=== PATIENT | female | born 1940 | race Caucasian/White ===

== ENCOUNTER → 2016-10-01 | Outpatient (CLI) | payer MEDICARE, OTHER ==
[~2016-10-01] MED LIST: AQUAZIDE H50 MG PO; CLARINEX 5MG5 MG PO; CLARINEX5 MG PO; COUMADIN5 MG PO; DEMADEX10 MG PO; EFFEXOR XR75 MG PO; EFFEXOR75 MG PO; HYDROCHLOR50 MG PO; ISOSORBIDE MONO60 MG PO; LOPRESSOR 225 MG/TAB PO; MICRO-K 1010 MEQ PO; NITROSTAT0.4 MG SL; POTASSIUM CL 220 MEQ PO; PREMARIN 0.60.625 M1 PO; PREMARIN0.45 MG PO; PREVACID 30MG30 M1 PO; PRILOSEC 20MG20 MG PO; SENORMIN50 MG PO; SIMVASTATIN20 MG PO; TENORMIN50 MG PO; TOPCARE ASPIRI325 MG PO; VITAMIN D50000 I1 PO; XANAX 1MG1 MG PO; XANAX1 MG PO; ZEBETA5 MG PO; ZESTRIL 5MG5 MG PO
== END ==
LOC: RAD 15:50
DX: J84.9 Interstitial pulmonary disease, unspecified (principal); J98.4 Other disorders of lung

== ENCOUNTER → 2016-10-28 | Outpatient (CLI) | payer MEDICARE, OTHER ==
[2014-08-08 11:49] VITALS: BP 140/87
== END ==
LOC: LAB 12:12
DX: E03.4 Atrophy of thyroid (acquired) (principal)

== ENCOUNTER → 2016-12-04 | Outpatient (CLI) | payer MEDICARE, OTHER ==
[2014-08-08 11:49] VITALS: BP 140/87
== END ==
LOC: LAB 15:00
DX: I50.9 Heart failure, unspecified (principal); R22.0 Localized swelling, mass and lump, head

== ENCOUNTER → 2016-12-06 | Outpatient (CLI) | payer MEDICARE, OTHER ==
[2014-08-08 11:49] VITALS: BP 140/87
== END ==
LOC: LAB 10:17
DX: I50.9 Heart failure, unspecified (principal); R22.0 Localized swelling, mass and lump, head

== ENCOUNTER → 2016-12-24 | Outpatient (CLI) | payer MEDICARE, OTHER ==
[2014-08-08 11:49] VITALS: BP 140/87
== END ==
LOC: RAD 13:22
DX: J84.81 Lymphangioleiomyomatosis (principal); J84.9 Interstitial pulmonary disease, unspecified; R94.2 Abnormal results of pulmonary function studies; R06.02 Shortness of breath; R06.09 Other forms of dyspnea

== ENCOUNTER → 2017-01-15 | Outpatient (CLI) | payer MEDICARE, OTHER ==
[2014-08-08 11:49] VITALS: BP 140/87
== END ==
LOC: LAB 10:12
DX: D50.9 Iron deficiency anemia, unspecified (principal); E87.6 Hypokalemia; D18.1 Lymphangioma, any site

== ENCOUNTER → 2017-04-16 | Outpatient (CLI) | payer MEDICARE, OTHER ==
[2014-08-08 11:49] VITALS: BP 140/87
== END ==
LOC: LAB 14:11
DX: R10.30 Lower abdominal pain, unspecified (principal)

== ENCOUNTER → 2017-04-17 | Outpatient (CLI) | payer MEDICARE, OTHER ==
[2014-08-08 11:49] VITALS: BP 140/87
== END ==
LOC: RAD 08:15
DX: R10.30 Lower abdominal pain, unspecified (principal); N28.9 Disorder of kidney and ureter, unspecified; Z90.710 Acquired absence of both cervix and uterus
CPT/HCPCS: Q9967

== ENCOUNTER → 2017-04-29 | Outpatient (CLI) | payer MEDICARE, OTHER ==
[2014-08-08 11:49] VITALS: BP 140/87
== END ==
LOC: RAD 09:44
DX: Q61.02 Congenital multiple renal cysts (principal); R91.8 Other nonspecific abnormal finding of lung field

== ENCOUNTER → 2017-07-24 | Outpatient (CLI) | payer MEDICARE, OTHER ==
[2014-08-08 11:49] VITALS: BP 140/87
[2017-07-24 11:42] LABS: EOS # 0.2 (0.04-0.40); EOS % 2.7 % (1.0-5.0); HEMOGLOBIN 12.8 g/dL (12.5-16.0); LYMPH# 1.2 (1.50-4.00); MEAN CELL VOLUME 94 fl (78-100); MEAN CORPUSCULAR HEMOGLOBIN 30 pg (27-31); MEAN CORPUSCULAR HGB CONC 32 g/dL (33-37); MEAN PLATELET VOLUME 10.8 fl (7.4-10.4); MONO # 0.6 (0.20-0.80); NEU # 3.6 (1.40-6.50); PLATELET COUNT 193 K/mm3 (130-400); RED BLOOD COUNT 4.27 M/mm3 (4.10-5.30); RED CELL DISTRIBUTION WIDTH 14.4 % (11.5-14.5); WHITE BLOOD COUNT 5.7 K/mm3 (4.8-10.8)
== END ==
LOC: LAB 11:15
PROVIDERS: Nurse Practitioner Family
DX: D64.9 Anemia, unspecified (principal); Z88.1 Allergy status to other antibiotic agents; Z88.8 Allergy status to other drugs, medicaments and biological substances

== ENCOUNTER → 2017-08-11 | Day surgery (SDC) | payer MEDICARE, OTHER ==
[2014-08-08 11:49] VITALS: BP 140/87
== END | disposition home or self-care (01) ==
LOC: MSO 07-21 09:57
DX: K22.70 Barrett's esophagus without dysplasia (principal); K21.0 Gastro-esophageal reflux disease with esophagitis; K44.9 Diaphragmatic hernia without obstruction or gangrene; E78.00 Pure hypercholesterolemia, unspecified; I10 Essential (primary) hypertension; K59.00 Constipation, unspecified; Z09 Encounter for follow-up examination after completed treatment for conditions other than malignant neoplasm; Z88.8 Allergy status to other drugs, medicaments and biological substances; I48.91 Unspecified atrial fibrillation; Z87.891 Personal history of nicotine dependence; J84.9 Interstitial pulmonary disease, unspecified; F41.9 Anxiety disorder, unspecified; E66.9 Obesity, unspecified; K57.30 Diverticulosis of large intestine without perforation or abscess without bleeding; K64.8 Other hemorrhoids; Z88.1 Allergy status to other antibiotic agents; I51.9 Heart disease, unspecified
CPT/HCPCS: 00812; A4649; J2704; J7120

== ENCOUNTER → 2017-11-04 | Outpatient (CLI) | payer MEDICARE, OTHER ==
[2014-08-08 11:49] VITALS: BP 140/87
[2017-11-04 10:47] LABS: BASO # 0.1 (0.02-0.10); EOS # 0.2 (0.04-0.40); EOS % 1.9 % (1.0-5.0); HEMATOCRIT 43.8 % (37.0-47.0); HEMOGLOBIN 14.3 g/dL (12.5-16.0); LYMPH# 1.5 (1.50-4.00); MEAN CELL VOLUME 93 fl (78-100); MEAN CORPUSCULAR HEMOGLOBIN 30 pg (27-31); MEAN CORPUSCULAR HGB CONC 33 g/dL (33-37); MEAN PLATELET VOLUME 10.5 fl (7.4-10.4); MONO # 0.9 (0.20-0.80); NEU # 5.2 (1.40-6.50); PLATELET COUNT 233 K/mm3 (130-400); RED BLOOD COUNT 4.73 M/mm3 (4.10-5.30); RED CELL DISTRIBUTION WIDTH 14.5 % (11.5-14.5); WHITE BLOOD COUNT 7.8 K/mm3 (4.8-10.8)
[2017-11-04 10:58] LABS: ALBUMIN 4.7 g/dL (3.5-5.0); BUN/CREATININE RATIO 21.6 (6.0-26.0); CALCIUM 9.8 mg/dL (8.4-10.2); POTASSIUM 3.4 mmol/L (3.6-5.0); TOTAL BILIRUBIN 0.5 mg/dL (0.2-1.3); TOTAL PROTEIN 8.2 g/dL (6.3-8.2)
[2017-11-04 11:12] LABS: URINE APPEARANCE CLEAR; URINE BILIRUBIN NEGATIVE (NEGATIVE); URINE BLOOD 50 ery/uL (NEGATIVE); URINE COLOR YELLOW; URINE GLUCOSE NEGATIVE (NEGATIVE); URINE KETONE NEGATIVE (NEGATIVE); URINE LEUKOCYTE ESTERASE 1+ (NEGATIVE); URINE MUCUS PRESENT (NOT PRESENT); URINE NITRATE NEGATIVE (NEGATIVE); URINE PROTEIN(semi-quant) NEGATIVE (NEGATIVE); URINE UROBILINOGEN NORMAL (NORMAL)
== END ==
LOC: LAB 10:05
PROVIDERS: Nurse Practitioner Family
DX: R55 Syncope and collapse (principal); E55.9 Vitamin D deficiency, unspecified; J84.9 Interstitial pulmonary disease, unspecified; R10.30 Lower abdominal pain, unspecified; Z88.1 Allergy status to other antibiotic agents; Z88.8 Allergy status to other drugs, medicaments and biological substances

== ENCOUNTER → 2017-11-09 | Outpatient (CLI) | payer MEDICARE, OTHER ==
[2014-08-08 11:49] VITALS: BP 140/87
== END ==
LOC: VAS 10:15 → RAD 10:15
DX: R55 Syncope and collapse (principal); J84.9 Interstitial pulmonary disease, unspecified; R10.30 Lower abdominal pain, unspecified; E55.9 Vitamin D deficiency, unspecified

== ENCOUNTER → 2017-11-24 | Outpatient (CLI) | payer MEDICARE, OTHER ==
[2014-08-08 11:49] VITALS: BP 140/87
[2017-11-24 10:46] LABS: HEMATOCRIT 43.4 % (37.0-47.0); HEMOGLOBIN 14.1 g/dL (12.5-16.0); MEAN PLATELET VOLUME 10.7 fl (7.4-10.4); RED BLOOD COUNT 4.62 M/mm3 (4.10-5.30); RED CELL DISTRIBUTION WIDTH 14.2 % (11.5-14.5); WHITE BLOOD COUNT 7.4 K/mm3 (4.8-10.8)
[2017-11-24 11:00] LABS: BUN/CREATININE RATIO 24.3 (6.0-26.0); CALCIUM 9.6 mg/dL (8.4-10.2); POTASSIUM 3.6 mmol/L (3.6-5.0)
== END ==
LOC: LAB 10:23
PROVIDERS: Nurse Practitioner Family
DX: I10 Essential (primary) hypertension (principal); I50.30 Unspecified diastolic (congestive) heart failure; R06.02 Shortness of breath; I25.10 Atherosclerotic heart disease of native coronary artery without angina pectoris

== ENCOUNTER → 2018-01-19 | Outpatient (CLI) | payer MEDICARE, OTHER ==
[2014-08-08 11:49] VITALS: BP 140/87
[2018-01-19 15:32] LABS: ALBUMIN 4.2 g/dL (3.5-5.0); BUN/CREATININE RATIO 25.6 (6.0-26.0); CALCIUM 8.6 mg/dL (8.4-10.2); TOTAL BILIRUBIN 0.6 mg/dL (0.2-1.3); TOTAL PROTEIN 7.5 g/dL (6.3-8.2)
[2018-01-19 16:02] LABS: EOS # 0.2 (0.04-0.40); HEMATOCRIT 38.3 % (37.0-47.0); HEMOGLOBIN 12.5 g/dL (12.5-16.0); LYMPH# 1.5 (1.50-4.00); MEAN CELL VOLUME 95 fl (78-100); MEAN CORPUSCULAR HEMOGLOBIN 31 pg (27-31); MEAN CORPUSCULAR HGB CONC 33 g/dL (33-37); MEAN PLATELET VOLUME 11.3 fl (7.4-10.4); MONO # 0.8 (0.20-0.80); NEU # 4.8 (1.40-6.50); PLATELET COUNT 252 K/mm3 (130-400); RED BLOOD COUNT 4.02 M/mm3 (4.10-5.30); RED CELL DISTRIBUTION WIDTH 14.4 % (11.5-14.5); WHITE BLOOD COUNT 7.4 K/mm3 (4.8-10.8)
== END ==
LOC: RAD 14:25
PROVIDERS: Nurse Practitioner Family
DX: R51 Headache (principal); J84.10 Pulmonary fibrosis, unspecified; R60.9 Edema, unspecified; R29.6 Repeated falls; Z95.0 Presence of cardiac pacemaker

== ENCOUNTER 2018-08-11 08:25 | Emergency (ER) | payer MEDICARE, OTHER ==
[~2018-08-11] VITALS: Wt 86.9 kg
[~2018-08-11 08:25] MED LIST changes: -CLARINEX5 MG PO; +EFFEXOR XR150 M1 PO; -EFFEXOR XR75 MG PO; +POTASSIUM CH2 MEQ/ML PO; -POTASSIUM CL 220 MEQ PO
[2018-08-11 09:07] LABS: HEMATOCRIT 35.9 % (37.0-47.0); HEMOGLOBIN 11.4 g/dL (12.5-16.0); MEAN CELL VOLUME 100 fl (78-100); MEAN CORPUSCULAR HEMOGLOBIN 32 pg (27-31); MEAN CORPUSCULAR HGB CONC 32 g/dL (33-37); PLATELET COUNT 221 K/mm3 (130-400)
[2018-08-11 09:15] LABS: CALCIUM 9.8 mg/dL (8.4-10.2); TOTAL BILIRUBIN 0.9 mg/dL (0.2-1.3); TOTAL PROTEIN 6.7 g/dL (6.3-8.2)
[2018-08-11] MEDS ORDERED: ALDACTONE 25MG25 MG PO (09:20)
[2018-08-11 09:21] LABS: TROPONIN-I < 0.03 ng/mL (0.00-0.06)
[2018-08-11] MEDS ORDERED: LEVOTHYROXINE0.05 MG PO (09:22)
[2018-08-11 09:23] LABS: BAND 1 % (0-10); LYMPHOCYTE 3 % (20-51); MONOCYTE 9 % (3-10); NEUTROPHILS 87 % (42-75)
[2018-08-11] MEDS ORDERED: AMBIEN5 M1 PO (09:23)
[2018-08-11] MEDS ORDERED: LINZESS145 MCG PO (09:23)
[2018-08-11] MEDS ORDERED: ADVAIR DISKUS1 DS2 IH (09:24)
[2018-08-11] MEDS ORDERED: ASPIR LOW81 MG PO (09:25)
[2018-08-11] MEDS ORDERED: XARELTO20 MG PO (09:25)
[2018-08-11] MEDS ORDERED: FUROSEMIDE40 MG PO (09:26)
[2018-08-11] MEDS ORDERED: VITAMIN D32000 UNI1 PO (09:26)
[2018-08-11 10:07] LABS: URINE APPEARANCE CLEAR; URINE BILIRUBIN NEGATIVE (NEGATIVE); URINE BLOOD 50 ery/uL (NEGATIVE); URINE COLOR YELLOW; URINE GLUCOSE NEGATIVE (NEGATIVE); URINE KETONE NEGATIVE (NEGATIVE); URINE LEUKOCYTE ESTERASE NEGATIVE (NEGATIVE); URINE NITRATE NEGATIVE (NEGATIVE); URINE PROTEIN(semi-quant) 1+ mg/dL (NEGATIVE); URINE UROBILINOGEN NORMAL (NORMAL)
[2018-08-11] MEDS ORDERED: ALBUTEROL2.5 MG/3 M IH (12:00)
[2018-08-11 12:11] VITALS: BP 172/79
== END 2018-08-11 12:31 | disposition home or self-care (01) ==
LOC: ED 08:25
PROVIDERS: Physician Assistant
DX: J84.81 Lymphangioleiomyomatosis (principal); I50.9 Heart failure, unspecified; I48.91 Unspecified atrial fibrillation; I25.10 Atherosclerotic heart disease of native coronary artery without angina pectoris; K22.70 Barrett's esophagus without dysplasia; Z79.82 Long term (current) use of aspirin; Z79.51 Long term (current) use of inhaled steroids; Z90.49 Acquired absence of other specified parts of digestive tract; Z90.710 Acquired absence of both cervix and uterus

== ENCOUNTER → 2018-08-17 | Outpatient (CLI) | payer MEDICARE, OTHER ==
[2018-08-11 12:11] VITALS: BP 172/79
[~2018-08-17] MED LIST changes: +ADVAIR DISKUS1 DS2 IH; +ALBUTEROL2.5 MG/3 M IH; +ALDACTONE 25MG25 MG PO; +AMBIEN5 M1 PO; +ASPIR LOW81 MG PO; +FUROSEMIDE40 MG PO; +LEVOTHYROXINE0.05 MG PO; +LINZESS145 MCG PO; +VITAMIN D32000 UNI1 PO; +XARELTO20 MG PO
[2018-08-17 12:45] LABS: ALBUMIN 4.3 g/dL (3.5-5.0); CALCIUM 9.1 mg/dL (8.4-10.2); POTASSIUM 5.3 mmol/L (3.6-5.0); TOTAL BILIRUBIN 0.6 mg/dL (0.2-1.3); TOTAL PROTEIN 7.3 g/dL (6.3-8.2)
== END ==
LOC: LAB 11:57
PROVIDERS: Physician Assistant
DX: I25.10 Atherosclerotic heart disease of native coronary artery without angina pectoris (principal); I48.91 Unspecified atrial fibrillation; I10 Essential (primary) hypertension; J98.4 Other disorders of lung; J84.9 Interstitial pulmonary disease, unspecified; J84.81 Lymphangioleiomyomatosis; F41.9 Anxiety disorder, unspecified

== ENCOUNTER → 2018-10-29 | Outpatient (CLI) | payer MEDICARE, OTHER ==
[2018-10-29 14:00] LABS: HEMATOCRIT 44.6 % (37.0-47.0); HEMOGLOBIN 14.3 g/dL (12.5-16.0); MEAN CELL VOLUME 94 fl (78-100); MEAN CORPUSCULAR HEMOGLOBIN 30 pg (27-31); MEAN CORPUSCULAR HGB CONC 32 g/dL (33-37); MEAN PLATELET VOLUME 10.6 fl (7.4-10.4); PLATELET COUNT 216 K/mm3 (130-400); RED BLOOD COUNT 4.76 M/mm3 (4.10-5.30); RED CELL DISTRIBUTION WIDTH 14.5 % (11.5-14.5); WHITE BLOOD COUNT 4.6 K/mm3 (4.8-10.8)
[2018-10-29 14:23] LABS: ALBUMIN 4.7 g/dL (3.5-5.0); CALCIUM 9.6 mg/dL (8.4-10.2); POTASSIUM 3.8 mmol/L (3.6-5.0); TOTAL BILIRUBIN 0.6 mg/dL (0.2-1.3); TOTAL PROTEIN 7.6 g/dL (6.3-8.2)
[2018-10-29 14:34] LABS: BAND 3 % (0-10); LYMPHOCYTE 32 % (20-51); MONOCYTE 12 % (3-10); NEUTROPHILS 51 % (42-75)
== END ==
LOC: LAB 13:42
PROVIDERS: Physician Assistant
DX: R11.0 Nausea (principal); R19.7 Diarrhea, unspecified; K92.1 Melena; K21.9 Gastro-esophageal reflux disease without esophagitis; K22.70 Barrett's esophagus without dysplasia

== ENCOUNTER → 2019-03-28 | Outpatient (CLI) | payer MEDICARE, OTHER ==
[2019-03-28 10:08] LABS: HEMOGLOBIN 15.2 g/dL (12.5-16.0); MEAN CELL VOLUME 99 fl (78-100); MEAN CORPUSCULAR HEMOGLOBIN 33 pg (27-31); MEAN CORPUSCULAR HGB CONC 33 g/dL (33-37); MEAN PLATELET VOLUME 10.4 fl (7.4-10.4); PLATELET COUNT 220 K/mm3 (130-400); RED BLOOD COUNT 4.66 M/mm3 (4.10-5.30); RED CELL DISTRIBUTION WIDTH 13.7 % (11.5-14.5); WHITE BLOOD COUNT 11.3 K/mm3 (4.8-10.8)
[2019-03-28 10:19] LABS: ALBUMIN 4.5 g/dL (3.4-4.8); POTASSIUM 4.4 mmol/L (3.5-5.1)
[2019-03-28 10:20] LABS: CALCIUM 10.4 mg/dL (8.3-10.5)
[2019-03-28 10:21] LABS: TOTAL PROTEIN 7.4 g/dL (6.2-8.1)
[2019-03-28 10:23] LABS: TOTAL BILIRUBIN 0.7 mg/dL (0.2-1.2)
[2019-03-28 11:07] LABS: LYMPHOCYTE 6 % (20-51); MONOCYTE 6 % (3-10); NEUTROPHILS 88 % (42-75); URINE APPEARANCE HAZY; URINE BILIRUBIN NEGATIVE (NEGATIVE); URINE BLOOD 250 ery/uL (NEGATIVE); URINE COLOR YELLOW; URINE GLUCOSE NEGATIVE (NEGATIVE); URINE KETONE NEGATIVE (NEGATIVE); URINE LEUKOCYTE ESTERASE TRACE (NEGATIVE); URINE MUCUS PRESENT (NOT PRESENT); URINE NITRATE NEGATIVE (NEGATIVE); URINE PROTEIN(semi-quant) 1+ mg/dL (NEGATIVE); URINE UROBILINOGEN NORMAL (NORMAL)
[2019-03-28 11:19] LABS: ERYTHROCYTE SEDIMENTATION RATE 1 mm/hr (0-30)
== END ==
LOC: LAB 09:55
PROVIDERS: Nurse Practitioner
DX: R51 Headache (principal); R11.0 Nausea; R10.9 Unspecified abdominal pain

== ENCOUNTER 2019-05-06 12:26 | Observation (INO) | payer MEDICARE, OTHER ==
[~2019-05-06] VITALS: Ht 160 cm; Wt 78.5 kg
[2019-05-06 13:20] VITALS: BP 102/82
[2019-05-06 13:54] LABS: MEAN CELL VOLUME 101 fl (78-100); MEAN CORPUSCULAR HEMOGLOBIN 32 pg (27-31); MEAN CORPUSCULAR HGB CONC 31 g/dL (33-37); MEAN PLATELET VOLUME 10.7 fl (7.4-10.4); PLATELET COUNT 258 K/mm3 (130-400); RED BLOOD COUNT 3.46 M/mm3 (4.10-5.30); RED CELL DISTRIBUTION WIDTH 15.1 % (11.5-14.5); WHITE BLOOD COUNT 7.8 K/mm3 (4.8-10.8)
[2019-05-06 14:01] LABS: LYMPHOCYTE 16 % (20-51); MONOCYTE 11 % (3-10); NEUTROPHILS 72 % (42-75)
[2019-05-06 14:02] LABS: ALBUMIN 4.4 g/dL (3.4-4.8); SODIUM 142 mmol/L (136-145)
[2019-05-06 14:03] LABS: CALCIUM 9.9 mg/dL (8.3-10.5)
[2019-05-06 14:05] LABS: GLUCOSE 97 mg/dL (65-105); TOTAL PROTEIN 7.7 g/dL (6.2-8.1)
[2019-05-06 14:06] LABS: CARBON DIOXIDE 24 mmol/L (23-31); TOTAL BILIRUBIN 1.3 mg/dL (0.2-1.2)
[2019-05-06 14:08] LABS: ALCOHOL IN-HOUSE < 10 mg/dL (<10)
[2019-05-06 14:10] LABS: AST-SGOT 21 U/L (5-34)
[2019-05-06 14:11] LABS: ALT/SGPT 16 U/L (0-55)
[2019-05-06 14:19] LABS: TROPONIN-I < 0.03 ng/mL (<0.030)
[2019-05-06 15:52] VITALS: BP 133/62
[2019-05-06] MEDS ORDERED: PRILOSEC 20MG20 MG PO (18:39)
[2019-05-06] MEDS ORDERED: ALPRAZOLAM ER2 MG PO (18:39)
[2019-05-06] MEDS ORDERED: XANAX 1MG1 MG PO (18:39)
[2019-05-06] MEDS ORDERED: ALPRAZOLAM ER1 MG PO (18:40)
[2019-05-06] MEDS ORDERED: LEXAPRO 10MG10 MG PO (18:40)
[2019-05-06] MEDS ORDERED: ALDACTONE 25MG25 MG PO (18:41)
[2019-05-06] MEDS ORDERED: ZOFRAN4 M2 PO (18:41)
[2019-05-06] MEDS ORDERED: CLARINEX 5MG5 MG PO (18:43)
[2019-05-06] MEDS ORDERED: POTASSIUM CH2 MEQ/ML PO (18:44)
[2019-05-06] MEDS ORDERED: CHILDREN'S ASPI81 M1 PO (18:45)
[2019-05-06 19:11] VITALS: BP 112/72
[2019-05-06 19:51] LABS: URINE APPEARANCE CLEAR; URINE BILIRUBIN NEGATIVE (NEGATIVE); URINE BLOOD TRACE (NEGATIVE); URINE COLOR YELLOW; URINE GLUCOSE NEGATIVE (NEGATIVE); URINE KETONE NEGATIVE (NEGATIVE); URINE NITRATE NEGATIVE (NEGATIVE); URINE PROTEIN(semi-quant) TRACE mg/dL (NEGATIVE); URINE UROBILINOGEN NORMAL (NORMAL)
[2019-05-06 19:52] LABS: URINE LEUKOCYTE ESTERASE NEGATIVE (NEGATIVE)
[2019-05-06 20:54] LABS: PARTIAL THROMBOPLASTIN TIME 57.1 SECONDS (21.0-32.0); PROTHROMBIN TIME 16.2 SECONDS (9.0-12.0)
[2019-05-06 23:08] VITALS: BP 117/64; BP 142/65
[2019-05-07] VITALS (7 sets, daily range): BP systolic 101–118; BP diastolic 57–74
[2019-05-07 11:49] LABS: POTASSIUM 3.9 mmol/L (3.5-5.1)
[2019-05-07 11:50] LABS: CALCIUM 8.6 mg/dL (8.3-10.5)
[2019-05-07 11:52] LABS: HEMATOCRIT 25.5 % (37.0-47.0); MEAN CELL VOLUME 103 fl (78-100); MEAN CORPUSCULAR HEMOGLOBIN 32 pg (27-31); MEAN CORPUSCULAR HGB CONC 31 g/dL (33-37); MEAN PLATELET VOLUME 11.1 fl (7.4-10.4); PLATELET COUNT 237 K/mm3 (130-400); RED BLOOD COUNT 2.48 M/mm3 (4.10-5.30); RED CELL DISTRIBUTION WIDTH 15.4 % (11.5-14.5); WHITE BLOOD COUNT 6.7 K/mm3 (4.8-10.8)
[2019-05-07 13:13] LABS: HEMOGLOBIN 7.9 g/dL (12.5-16.0)
[2019-05-07 13:14] LABS: HYPOCHROMIA 1+; LYMPHOCYTE 16 % (20-51); MONOCYTE 11 % (3-10); NEUTROPHILS 70 % (42-75); POLYCHROMASIA 1+
[2019-05-07 17:14] LABS: HEMATOCRIT 27.9 % (37.0-47.0); HEMOGLOBIN 8.9 g/dL (12.5-16.0)
[2019-05-07 17:22] LABS: POTASSIUM 3.6 mmol/L (3.5-5.1)
[2019-05-07 17:23] LABS: CALCIUM 9.1 mg/dL (8.3-10.5)
[2019-05-08 02:38] VITALS: BP 130/74
[2019-05-08 06:18] VITALS: BP 107/56
[2019-05-08 08:10] LABS: HEMOGLOBIN 8.4 g/dL (12.5-16.0); MEAN CELL VOLUME 103 fl (78-100); MEAN CORPUSCULAR HEMOGLOBIN 32 pg (27-31); MEAN CORPUSCULAR HGB CONC 31 g/dL (33-37); MEAN PLATELET VOLUME 10.2 fl (7.4-10.4); PLATELET COUNT 249 K/mm3 (130-400); RED BLOOD COUNT 2.63 M/mm3 (4.10-5.30); RED CELL DISTRIBUTION WIDTH 15.8 % (11.5-14.5); WHITE BLOOD COUNT 6.3 K/mm3 (4.8-10.8)
[2019-05-08 09:03] LABS: POTASSIUM 3.9 mmol/L (3.5-5.1)
[2019-05-08 09:04] LABS: CALCIUM 9.2 mg/dL (8.3-10.5)
[2019-05-08 09:37] LABS: LYMPHOCYTE 25 % (20-51); MONOCYTE 13 % (3-10); NEUTROPHILS 61 % (42-75); POLYCHROMASIA 1+
[2019-05-08 10:00] VITALS: BP 162/63
[2019-05-08 15:50] VITALS: BP 98/61
[2019-05-08 18:40] VITALS: BP 114/67
[2019-05-08 23:00] VITALS: BP 112/50
[2019-05-09 02:59] VITALS: BP 114/68
[2019-05-09 06:59] VITALS: BP 95/56
[2019-05-09 09:23] LABS: HEMATOCRIT 29.7 % (37.0-47.0); HEMOGLOBIN 9.5 g/dL (12.5-16.0); MEAN CELL VOLUME 103 fl (78-100); MEAN CORPUSCULAR HEMOGLOBIN 33 pg (27-31); MEAN CORPUSCULAR HGB CONC 32 g/dL (33-37); MEAN PLATELET VOLUME 10.2 fl (7.4-10.4); PLATELET COUNT 317 K/mm3 (130-400); RED BLOOD COUNT 2.89 M/mm3 (4.10-5.30); RED CELL DISTRIBUTION WIDTH 16.2 % (11.5-14.5); WHITE BLOOD COUNT 6.3 K/mm3 (4.8-10.8)
[2019-05-09 09:51] LABS: POTASSIUM 4.1 mmol/L (3.5-5.1)
[2019-05-09 09:52] LABS: CALCIUM 10.1 mg/dL (8.3-10.5)
[2019-05-09 10:05] LABS: LYMPHOCYTE 21 % (20-51); NEUTROPHILS 63 % (42-75)
[2019-05-09 10:06] LABS: MONOCYTE 16 % (3-10); POLYCHROMASIA 1+
[2019-05-09 11:42] VITALS: BP 105/59
[2019-05-09 15:09] VITALS: BP 108/68
[2019-05-09 17:44] VITALS: BP 107/64
[2019-05-09 23:17] VITALS: BP 105/59
[2019-05-10 02:28] VITALS: BP 120/57
[2019-05-10 06:19] VITALS: BP 111/73
[2019-05-10 10:52] VITALS: BP 109/53
[2019-05-10 14:36] VITALS: BP 119/61
[2019-05-10 18:25] VITALS: BP 122/77
[2019-05-10 23:44] VITALS: BP 114/71
[2019-05-11 03:00] VITALS: BP 132/79
[2019-05-11 06:18] VITALS: BP 107/58
[2019-05-11 11:00] VITALS: BP 126/78
[2019-05-11 14:17] VITALS: BP 126/78
== END 2019-05-11 15:43 ==
LOC: ED 12:26 → MED/SURG 15:20
PROVIDERS: Family Medicine; Nurse Practitioner; ADMIT Nurse Practitioner Family
DX: R40.4 Transient alteration of awareness (principal); E86.0 Dehydration; N17.9 Acute kidney failure, unspecified; S80.01XA Contusion of right knee, initial encounter; F32.9 Major depressive disorder, single episode, unspecified; Z79.01 Long term (current) use of anticoagulants; Z79.82 Long term (current) use of aspirin; Z88.1 Allergy status to other antibiotic agents; Z88.8 Allergy status to other drugs, medicaments and biological substances; I69.892 Facial weakness following other cerebrovascular disease; G51.0 Bell's palsy; J84.81 Lymphangioleiomyomatosis; E66.9 Obesity, unspecified; J84.9 Interstitial pulmonary disease, unspecified; E78.5 Hyperlipidemia, unspecified; I10 Essential (primary) hypertension; K21.9 Gastro-esophageal reflux disease without esophagitis; I25.10 Atherosclerotic heart disease of native coronary artery without angina pectoris; I48.91 Unspecified atrial fibrillation; F41.9 Anxiety disorder, unspecified; Z90.710 Acquired absence of both cervix and uterus; Z82.49 Family history of ischemic heart disease and other diseases of the circulatory system
CPT/HCPCS: G0378; J1650; J2060; J3411; J3430; J3490; J7030

== ENCOUNTER 2019-08-27 14:20 | Emergency (ER) | payer MEDICARE, OTHER ==
[~2019-08-27 14:20] MED LIST changes: +ALPRAZOLAM ER1 MG PO; +ALPRAZOLAM ER2 MG PO; +CHILDREN'S ASPI81 M1 PO; +LEXAPRO 10MG10 MG PO; +ZOFRAN4 M2 PO
[2019-08-27 15:05] LABS: EOS # 0.1 (0.04-0.40); EOS % 0.9 % (1.0-5.0); HEMATOCRIT 42.8 % (37.0-47.0); HEMOGLOBIN 13.6 g/dL (12.5-16.0); LYMPH# 1.4 (1.50-4.00); MEAN CELL VOLUME 95 fl (78-100); MEAN CORPUSCULAR HEMOGLOBIN 30 pg (27-31); MEAN CORPUSCULAR HGB CONC 32 g/dL (33-37); MEAN PLATELET VOLUME 10.4 fl (7.4-10.4); MONO # 0.7 (0.20-0.80); NEU # 4.4 (1.40-6.50); PLATELET COUNT 206 K/mm3 (130-400); RED BLOOD COUNT 4.49 M/mm3 (4.10-5.30); RED CELL DISTRIBUTION WIDTH 14.1 % (11.5-14.5); WHITE BLOOD COUNT 6.5 K/mm3 (4.8-10.8)
[2019-08-27 15:11] LABS: ALBUMIN 4.5 g/dL (3.4-4.8)
[2019-08-27 15:12] LABS: POTASSIUM 4.2 mmol/L (3.5-5.1)
[2019-08-27 15:13] LABS: CALCIUM 9.8 mg/dL (8.3-10.5)
[2019-08-27 15:14] LABS: TOTAL PROTEIN 7.1 g/dL (6.2-8.1)
[2019-08-27 15:16] LABS: TOTAL BILIRUBIN 0.4 mg/dL (0.2-1.2)
[2019-08-27] MEDS ORDERED: DOK COLACE100 MG PO (15:32)
[2019-08-27] MEDS ORDERED: MIRALAX17 GM PO (15:32)
[2019-08-27] MEDS ORDERED: ATROVENT I0.2 MG/1 M IH ×2 (15:33→15:36)
[2019-08-27] MEDS ORDERED: MELATIN 3 MG-11 TAB PO (15:34)
[2019-08-27] MEDS ORDERED: ACETAMINOPHEN325 M1 PO (15:35)
[2019-08-27 17:04] LABS: URINE APPEARANCE CLEAR; URINE COLOR YELLOW
[2019-08-27 17:05] LABS: URINE BILIRUBIN NEGATIVE (NEGATIVE); URINE BLOOD NEGATIVE (NEGATIVE); URINE GLUCOSE NEGATIVE (NEGATIVE); URINE KETONE NEGATIVE (NEGATIVE); URINE LEUKOCYTE ESTERASE TRACE (NEGATIVE); URINE NITRATE NEGATIVE (NEGATIVE); URINE PROTEIN(semi-quant) NEGATIVE (NEGATIVE); URINE UROBILINOGEN NORMAL (NORMAL); URINE WBC 0-1 /hpf (0-3)
[2019-08-27] MEDS ORDERED: ZOFRAN ODT4 MG PO (17:41)
[2019-08-27 17:56] VITALS: BP 110/69
== END 2019-08-27 18:03 | disposition home or self-care (01) ==
LOC: ED 14:20
PROVIDERS: Family Medicine
DX: B34.9 Viral infection, unspecified (principal); E86.9 Volume depletion, unspecified; I48.91 Unspecified atrial fibrillation; I25.10 Atherosclerotic heart disease of native coronary artery without angina pectoris; I10 Essential (primary) hypertension; K22.70 Barrett's esophagus without dysplasia; F32.9 Major depressive disorder, single episode, unspecified; G51.0 Bell's palsy; Z87.891 Personal history of nicotine dependence; Z95.0 Presence of cardiac pacemaker; Z95.5 Presence of coronary angioplasty implant and graft
CPT/HCPCS: J7030

== ENCOUNTER 2019-09-05 10:18 | Emergency (ER) | payer MEDICARE, OTHER ==
[~2019-09-05] VITALS: Wt 82.0 kg
[~2019-09-05 10:18] MED LIST changes: +ACETAMINOPHEN325 M1 PO; -ALPRAZOLAM ER2 MG PO; +ATROVENT I0.2 MG/1 M IH; +DOK COLACE100 MG PO; +MELATIN 3 MG-11 TAB PO; +MIRALAX17 GM PO; +SIMVASTATIN20 M1 PO; -VITAMIN D32000 UNI1 PO; +VITAMIN D32000 UNI2 PO; +ZOFRAN ODT4 MG PO
[2019-09-05] MEDS ORDERED: PHENERGAN 25 TA25 MG PO ×2 (10:45→13:58)
[2019-09-05] MEDS ORDERED: LACTULOSE10 GM/15 M PO (10:45)
[2019-09-05 11:33] LABS: ALBUMIN 4.2 g/dL (3.4-4.8); EOS # 0.1 (0.04-0.40); HEMATOCRIT 42.7 % (37.0-47.0); HEMOGLOBIN 13.1 g/dL (12.5-16.0); LYMPH# 0.9 (1.50-4.00); MEAN CELL VOLUME 98 fl (78-100); MEAN CORPUSCULAR HEMOGLOBIN 30 pg (27-31); MEAN CORPUSCULAR HGB CONC 31 g/dL (33-37); MEAN PLATELET VOLUME 11.1 fl (7.4-10.4); MONO # 0.7 (0.20-0.80); NEU # 5.5 (1.40-6.50); PLATELET COUNT 215 K/mm3 (130-400); RED BLOOD COUNT 4.35 M/mm3 (4.10-5.30); RED CELL DISTRIBUTION WIDTH 14.7 % (11.5-14.5); WHITE BLOOD COUNT 7.2 K/mm3 (4.8-10.8)
[2019-09-05 11:34] LABS: POTASSIUM 4.7 mmol/L (3.5-5.1)
[2019-09-05 11:36] LABS: TOTAL PROTEIN 6.8 g/dL (6.2-8.1)
[2019-09-05 11:38] LABS: TOTAL BILIRUBIN 0.5 mg/dL (0.2-1.2)
[2019-09-05 11:55] LABS: URINE WBC 0 /hpf (0-3)
[2019-09-05 12:07] LABS: URINE APPEARANCE CLEAR; URINE BILIRUBIN NEGATIVE (NEGATIVE); URINE BLOOD NEGATIVE (NEGATIVE); URINE COLOR YELLOW; URINE GLUCOSE NEGATIVE (NEGATIVE); URINE KETONE NEGATIVE (NEGATIVE); URINE LEUKOCYTE ESTERASE NEGATIVE (NEGATIVE); URINE NITRATE NEGATIVE (NEGATIVE); URINE PROTEIN(semi-quant) NEGATIVE (NEGATIVE); URINE UROBILINOGEN NORMAL (NORMAL)
[2019-09-05 14:21] VITALS: BP 124/74
[2019-09-06] MEDS ORDERED: ISOSORBIDE MONO60 M2 PO (08:55)
[2019-09-06] MEDS ORDERED: ZOFRAN4 M2 PO (08:57)
[2019-09-06] MEDS ORDERED: POTA20PKT PO (08:58)
[2019-09-06] MEDS ORDERED: BIOTENE MOIST44.3 ML PO (09:03)
[2019-09-06] MEDS ORDERED: ATROVENT I0.2 MG/1 M IH (09:04)
[2019-09-06] MEDS ORDERED: GOOD NEIGH1200 MG/15 PO (09:05)
[2019-09-06] MEDS ORDERED: PHENERGAN 25 TA25 MG PO (09:06)
[2019-09-06] MEDS ORDERED: CYCLOBENZ5 MG PO (13:01)
== END 2019-09-05 14:17 | disposition home or self-care (01) ==
LOC: ED 10:18
PROVIDERS: Nurse Practitioner
DX: R51 Headache (principal); R11.0 Nausea; F41.9 Anxiety disorder, unspecified; F32.9 Major depressive disorder, single episode, unspecified; I48.91 Unspecified atrial fibrillation; I10 Essential (primary) hypertension; I25.10 Atherosclerotic heart disease of native coronary artery without angina pectoris; Z95.0 Presence of cardiac pacemaker; Z87.891 Personal history of nicotine dependence; Z79.51 Long term (current) use of inhaled steroids
CPT/HCPCS: J1885

== ENCOUNTER 2019-09-06 07:55 | Emergency (ER) | payer MEDICARE, OTHER ==
[~2019-09-06] VITALS: Wt 80.5 kg
[~2019-09-06 07:55] MED LIST changes: +LACTULOSE10 GM/15 M PO; +PHENERGAN 25 TA25 MG PO
[2019-09-06] MEDS ORDERED: ISOSORBIDE MONO60 M2 PO (08:55)
[2019-09-06] MEDS ORDERED: ZOFRAN4 M2 PO (08:57)
[2019-09-06] MEDS ORDERED: POTA20PKT PO (08:58)
[2019-09-06] MEDS ORDERED: BIOTENE MOIST44.3 ML PO (09:03)
[2019-09-06] MEDS ORDERED: ATROVENT I0.2 MG/1 M IH (09:04)
[2019-09-06 09:05] LABS: HEMOGLOBIN 13.7 g/dL (12.5-16.0); MEAN CELL VOLUME 97 fl (78-100); MEAN CORPUSCULAR HEMOGLOBIN 31 pg (27-31); MEAN CORPUSCULAR HGB CONC 32 g/dL (33-37); PLATELET COUNT 151 K/mm3 (130-400); RED BLOOD COUNT 4.45 M/mm3 (4.10-5.30); RED CELL DISTRIBUTION WIDTH 14.9 % (11.5-14.5); WHITE BLOOD COUNT 3.7 K/mm3 (4.8-10.8)
[2019-09-06] MEDS ORDERED: GOOD NEIGH1200 MG/15 PO (09:05)
[2019-09-06] MEDS ORDERED: PHENERGAN 25 TA25 MG PO (09:06)
[2019-09-06 09:09] LABS: ALBUMIN 4.3 g/dL (3.4-4.8)
[2019-09-06 09:10] LABS: POTASSIUM 4.2 mmol/L (3.5-5.1); SODIUM 140 mmol/L (136-145)
[2019-09-06 09:11] LABS: CALCIUM 10.1 mg/dL (8.3-10.5)
[2019-09-06 09:12] LABS: GLUCOSE 100 mg/dL (65-105); TOTAL PROTEIN 6.8 g/dL (6.2-8.1)
[2019-09-06 09:13] LABS: CARBON DIOXIDE 24 mmol/L (23-31)
[2019-09-06 09:14] LABS: TOTAL BILIRUBIN 0.5 mg/dL (0.2-1.2)
[2019-09-06 09:17] LABS: AST-SGOT 16 U/L (5-34)
[2019-09-06 09:18] LABS: ALT/SGPT 11 U/L (0-55)
[2019-09-06 09:27] LABS: LYMPHOCYTE 24 % (20-51); MONOCYTE 10 % (3-10); NEUTROPHILS 63 % (42-75); OVALOCYTES 1+; TROPONIN-I < 0.03 ng/mL (<0.030)
[2019-09-06 09:29] LABS: LIPASE 17 U/L (8-78)
[2019-09-06 12:26] LABS: TROPONIN-I < 0.03 ng/mL (<0.030)
[2019-09-06] MEDS ORDERED: CYCLOBENZ5 MG PO (13:01)
[2019-09-06 13:08] VITALS: BP 144/71
== END 2019-09-06 13:21 | disposition home or self-care (01) ==
LOC: ED 07:55
PROVIDERS: Nurse Practitioner Family
DX: N28.9 Disorder of kidney and ureter, unspecified (principal); G44.209 Tension-type headache, unspecified, not intractable; F41.9 Anxiety disorder, unspecified; R07.89 Other chest pain; E78.5 Hyperlipidemia, unspecified; I48.91 Unspecified atrial fibrillation; I25.10 Atherosclerotic heart disease of native coronary artery without angina pectoris; K21.9 Gastro-esophageal reflux disease without esophagitis; F32.9 Major depressive disorder, single episode, unspecified; Z90.710 Acquired absence of both cervix and uterus; Z90.89 Acquired absence of other organs; Z79.01 Long term (current) use of anticoagulants; Z87.891 Personal history of nicotine dependence; Z95.9 Presence of cardiac and vascular implant and graft, unspecified; Z79.51 Long term (current) use of inhaled steroids
CPT/HCPCS: J1200; J1885; J2360; J2405; J7030

== ENCOUNTER → 2019-09-07 | Outpatient (CLI) | payer MEDICARE, OTHER ==
[2019-09-06 13:08] VITALS: BP 144/71
[~2019-09-07] MED LIST changes: +BIOTENE MOIST44.3 ML PO; +CYCLOBENZ5 MG PO; +GOOD NEIGH1200 MG/15 PO; +ISOSORBIDE MONO60 M2 PO; +POTA20PKT PO
== END ==
LOC: RAD 08:13
DX: N26.1 Atrophy of kidney (terminal) (principal); K21.9 Gastro-esophageal reflux disease without esophagitis; K59.00 Constipation, unspecified

== ENCOUNTER 2019-09-08 12:21 | Emergency (ER) | payer MEDICARE, OTHER ==
[2019-09-08 13:00] LABS: EOS # 0.1 (0.04-0.40); EOS % 1.4 % (1.0-5.0); HEMOGLOBIN 12.4 g/dL (12.5-16.0); MEAN CELL VOLUME 97 fl (78-100); MEAN CORPUSCULAR HEMOGLOBIN 30 pg (27-31); MEAN CORPUSCULAR HGB CONC 31 g/dL (33-37); MEAN PLATELET VOLUME 10.4 fl (7.4-10.4); MONO # 0.4 (0.20-0.80); NEU # 3.4 (1.40-6.50); PLATELET COUNT 183 K/mm3 (130-400); RED BLOOD COUNT 4.11 M/mm3 (4.10-5.30); RED CELL DISTRIBUTION WIDTH 14.7 % (11.5-14.5); WHITE BLOOD COUNT 4.9 K/mm3 (4.8-10.8)
[2019-09-08 13:07] LABS: POTASSIUM 4.7 mmol/L (3.5-5.1); SODIUM 141 mmol/L (136-145)
[2019-09-08 13:09] LABS: GLUCOSE 117 mg/dL (65-105)
[2019-09-08 13:10] LABS: CARBON DIOXIDE 23 mmol/L (23-31)
[2019-09-08 13:27] LABS: TROPONIN-I < 0.03 ng/mL (<0.030)
[2019-09-08 13:48] LABS: D-DIMER 0.51 mg/L FEU (0.15-0.50)
[2019-09-08 13:54] LABS: PH-URINE 7.5 (5.0 - 8.0); URINE APPEARANCE CLEAR; URINE BILIRUBIN NEGATIVE (NEGATIVE); URINE COLOR YELLOW; URINE GLUCOSE NEGATIVE (NEGATIVE); URINE KETONE NEGATIVE (NEGATIVE); URINE NITRATE NEGATIVE (NEGATIVE); URINE PROTEIN(semi-quant) TRACE mg/dL (NEGATIVE); URINE UROBILINOGEN NORMAL (NORMAL)
[2019-09-08 13:55] LABS: URINE BLOOD NEGATIVE (NEGATIVE); URINE LEUKOCYTE ESTERASE NEGATIVE (NEGATIVE)
[2019-09-08 16:25] VITALS: BP 139/74
== END 2019-09-08 16:11 | disposition home or self-care (01) ==
LOC: ED 12:21
PROVIDERS: Internal Medicine; Nurse Practitioner Family
DX: F32.9 Major depressive disorder, single episode, unspecified (principal); R56.9 Unspecified convulsions; I25.10 Atherosclerotic heart disease of native coronary artery without angina pectoris; I10 Essential (primary) hypertension; E07.9 Disorder of thyroid, unspecified; J84.9 Interstitial pulmonary disease, unspecified; K22.70 Barrett's esophagus without dysplasia; Z87.891 Personal history of nicotine dependence; Z95.5 Presence of coronary angioplasty implant and graft; Z95.0 Presence of cardiac pacemaker

== ENCOUNTER → 2019-09-08 | Day surgery (SDC) | payer MEDICARE, OTHER ==
[2019-09-06 13:08] VITALS: BP 144/71
== END ==
LOC: MSO 09:16
DX: K21.0 Gastro-esophageal reflux disease with esophagitis (principal); K22.70 Barrett's esophagus without dysplasia; I10 Essential (primary) hypertension; I25.10 Atherosclerotic heart disease of native coronary artery without angina pectoris; I48.91 Unspecified atrial fibrillation; F32.9 Major depressive disorder, single episode, unspecified; F41.9 Anxiety disorder, unspecified; Z90.710 Acquired absence of both cervix and uterus; Z87.891 Personal history of nicotine dependence
CPT/HCPCS: 00731; J2704; J7120

== ENCOUNTER → 2019-12-21 | Outpatient (CLI) | payer MEDICARE, OTHER ==
[2019-12-21 18:05] LABS: URINE APPEARANCE CLEAR; URINE BILIRUBIN NEGATIVE (NEGATIVE); URINE BLOOD TRACE (NEGATIVE); URINE COLOR YELLOW; URINE GLUCOSE NEGATIVE (NEGATIVE); URINE KETONE NEGATIVE (NEGATIVE); URINE LEUKOCYTE ESTERASE NEGATIVE (NEGATIVE); URINE MUCUS PRESENT (NOT PRESENT); URINE NITRATE NEGATIVE (NEGATIVE); URINE PROTEIN(semi-quant) TRACE mg/dL (NEGATIVE); URINE UROBILINOGEN NORMAL (NORMAL)
== END ==
LOC: LAB 17:39
PROVIDERS: Physician Assistant
DX: K31.84 Gastroparesis (principal); R52 Pain, unspecified

== ENCOUNTER 2020-03-30 15:06 | Emergency (ER) | payer MEDICARE, OTHER ==
[2020-03-30] MEDS ORDERED: ACIDOPHILUS1 EAC2 PO (15:36)
[2020-03-30] MEDS ORDERED: WELLBUTRIN SR150 M2 PO (15:37)
[2020-03-30] MEDS ORDERED: CELEXA 20MG20 MG/TA1 PO (15:39)
[2020-03-30 15:42] LABS: HEMATOCRIT 40.1 % (37.0-47.0); MEAN CELL VOLUME 95 fl (78-100); MEAN CORPUSCULAR HEMOGLOBIN 31 pg (27-31); MEAN CORPUSCULAR HGB CONC 32 g/dL (33-37); MEAN PLATELET VOLUME 10.7 fl (7.4-10.4); PLATELET COUNT 231 K/mm3 (130-400); RED BLOOD COUNT 4.22 M/mm3 (4.10-5.30); RED CELL DISTRIBUTION WIDTH 14.1 % (11.5-14.5); WHITE BLOOD COUNT 6.6 K/mm3 (4.8-10.8)
[2020-03-30] MEDS ORDERED: COMPAZINE5 M2 PO (15:44)
[2020-03-30] MEDS ORDERED: SUCRALFATE1 G1 PO (15:45)
[2020-03-30 15:47] LABS: ALBUMIN 4.2 g/dL (3.4-4.8); POTASSIUM 3.8 mmol/L (3.5-5.1); SODIUM 139 mmol/L (136-145)
[2020-03-30 15:48] LABS: CALCIUM 9.4 mg/dL (8.3-10.5)
[2020-03-30 15:49] LABS: GLUCOSE 124 mg/dL (65-105); TOTAL PROTEIN 6.7 g/dL (6.2-8.1)
[2020-03-30 15:50] LABS: CARBON DIOXIDE 21 mmol/L (23-31)
[2020-03-30 15:51] LABS: TOTAL BILIRUBIN 0.2 mg/dL (0.2-1.2)
[2020-03-30 15:52] LABS: BAND 5 % (0-10); LYMPHOCYTE 10 % (20-51); NEUTROPHILS 70 % (42-75)
[2020-03-30 15:53] LABS: MONOCYTE 14 % (3-10); OVALOCYTES 1+
[2020-03-30 15:54] LABS: AST-SGOT 18 U/L (5-34)
[2020-03-30 15:56] LABS: ALT/SGPT 17 U/L (0-55); MAGNESIUM 2.05 mg/dL (1.60-2.60)
[2020-03-30 16:05] LABS: TROPONIN-I < 0.03 ng/mL (<0.030)
[2020-03-30 17:42] VITALS: BP 106/59
[2020-04-02] MEDS ORDERED: CEPHALEXIN500 M1 PO (16:25)
== END 2020-03-30 17:36 ==
LOC: ED 15:06
PROVIDERS: Nurse Practitioner Family
DX: R07.89 Other chest pain (principal); K29.70 Gastritis, unspecified, without bleeding; I25.10 Atherosclerotic heart disease of native coronary artery without angina pectoris; Z87.891 Personal history of nicotine dependence; Z90.49 Acquired absence of other specified parts of digestive tract; Z95.5 Presence of coronary angioplasty implant and graft; Z95.0 Presence of cardiac pacemaker; Z88.1 Allergy status to other antibiotic agents; Z88.8 Allergy status to other drugs, medicaments and biological substances; Z79.01 Long term (current) use of anticoagulants
CPT/HCPCS: J2405